=== PATIENT | female | born 1990 | race Hispanic/Latino ===

== ENCOUNTER 2017-06-28 22:25 | Emergency (ER) | payer SELFPAY, OTHER ==
[2017-06-28 22:46] LABS: Bilirubin Negative (Negative); Blood, Urine Negative (Negative); Clarity CLOUDY (Clear); Glucose, Urine (Dipstick) Negative (Negative); Leukocyte Small (Negative); Nitrite Negative (Negative); Protein, Urine (Dipstick) Negative (Neg-Trace); Specific Gravity, Urine 1.022 (1.002-1.036); pH, Urine 6.5 (5.0-9.0)
[2017-06-28 22:48] LABS: Bacteria/HPF 1+ HPF (None Seen); Hyaline Casts/LPF 0-3 HYALINE CAST LPF (0-3 Hyaline); Pathc Cast-AUWi Flag 0.13 (0-2.49); WBC/HPF 0-3 HPF (0-3)
[2017-06-28 22:59] LABS: #Basophils 0.1 thou/uL (0.0-0.2); #Eosinphils 0.1 thou/uL (0.0-0.7); #Lymphocytes 3.1 thou/uL (1.20-3.40); #Monocytes 0.7 thou/uL (0.11-0.59); #Neutrophils 4.7 thou/uL (1.40-6.50); %Basophils 0.9 % (0.0-1.0); %Eosinophils 1.1 % (0.0-10.0); %Monocytes 7.6 % (0.0-10.0); %Neutrophils 54.4 % (42.0-75.0); Hemoglobin 13.9 g/dL (12.0-16.0); Mean Corpuscular HGB CONC 35.5 g/dL (32.0-36.0); Mean Corpuscular Volume 90.4 fl (81.0-99.0); Platelet Count 446 thou/uL (130-400); RBC Distribution Width 12.2 % (11.5-14.5); Red Blood Cell (RBC) Count 4.33 mill/uL (4.20-5.40); White Blood Cell (WBC) Count 8.7 thou/uL (4.8-10.8)
--- NOTE | 2017-06-29 13:45 | ULT ---
PRELIMINARY REPORT/[facility]/EMERGENCY AFTER HOURS PROCEDURE: EXAM: US , Transvaginal US Duplex Arterial/Venous of the Pelvis, Complete CLINICAL HISTORY: 27 years old, female; Pain; Other: Pelvic pain, +preg; Gestational age or lmp: 5w6d; TECHNIQUE: Real-time transvaginal obstetrical ultrasound of the maternal pelvis and a first trimester with image documentation. Transvaginal imaging was used for better evaluation of the fetus and adnexa . Real-time duplex ultrasound scan of the arterial and venous flow of the pelvis with color Doppler jonathan w and spectral waveform analysis was also performed for evaluation of pelvic and ovarian blood flow a nd torsion. COMPARISON: No relevant prior studies available. FINDINGS: Gestation: Single, living intrauterine gestation. heart rate 103-114 beats per minute. CRL 0.34 cm-6w0d. Yolk sac visualized. Small subchorionic hemorrhage measuring up to 1 cm. Placenta/amniotic fluid: Cannot be adequately evaluated due to the early gestational age. Uterus/cervix: Unremarkable. No myometrial mass. Ovaries: Probable right ovarian corpus luteal cyst. Otherwise unremarkable. Normal blood flow. No ev idence of torsion. Free fluid: Mild cul-de-sac free fluid. IMPRESSION: Single viable intrauterine . Small subchorionic hemorrhage. Findings described above. Thank you for allowing us to participate in the care of your patient. Dictated and Authenticated by: Nestor Gallegos MD 06/29/2017 12:51 AM Central Time ([place] & [place]) FINAL REPORT EMERGENCY AFTER HOUS PELVIC ULTRASOUND INCLUDING TRANSVAGINAL AND VASCULAR DUPLEX WITH COLOR AND SPEC TRAL DOPPLER IMAGING: Date: 06/29/17 Time: 0015 hours FINDINGS: Early viable intrauterine with crown-rump length of 0.3 cm, equivalent to 6 weeks/0 days. G estational sac is 0.92 cm, equivalent to 5 weeks/5 days, with a gestational age average of 5 weeks/6 days. EDC of 02/22/18. Left ovary is 1.8 x 1.7 x 2.9 cm. Right ovary is 2.0 x 2.0 x 3.9 cm with a 1.3 x 1.8 cm follicle cyst . Uterus measures 7.6 x 4.0 x 5.0 cm. Small subchorionic hemorrhage. Vascular duplex with color and spectral Doppler imaging to both ovaries demonstrates vascular flow to both ovaries. No evidence of ovarian torsion. Minimal free fluid. IMPRESSION: Early viable intrauterine with subchorionic hemorrhage. Continue short-term follow-up serum HCGs. Report in agreement with preliminary report given on-call by Jt. POS: FELIX
== END 2017-06-29 01:55 | disposition home or self-care (01) ==
LOC: ERS 22:25
DX: O20.0 Threatened abortion (principal); O23.41 Unspecified infection of urinary tract in pregnancy, first trimester
CPT/HCPCS: 36415; 76856; 81003; 81015; 84702; 85025; 86850; 86900; 86901

== ENCOUNTER 2017-10-02 23:17 | Emergency (ER) | payer OTHER, SELFPAY ==
[2017-10-03] MEDS ORDERED: Ketorolac Tromethamine 30 MG/ML VIAL ONE (00:33)
[2017-10-03] MEDS ORDERED: Acetaminophen 500 MG TAB ONE (01:10)
[2017-10-03 01:25] LABS: Bilirubin Negative (Negative); Blood, Urine Negative (Negative); Clarity CLOUDY (Clear); Glucose, Urine (Dipstick) Negative (Negative); Leukocyte Negative (Negative); Nitrite Negative (Negative); Protein, Urine (Dipstick) Negative (Neg-Trace); Specific Gravity, Urine 1.015 (1.002-1.036)
[2017-10-09 11:53] LABS: Ref Lab Test Ordered SENS; Reference Lab Name LABCORP
== END 2017-10-03 01:53 | disposition home or self-care (01) ==
LOC: ERS 23:17
DX: B34.9 Viral infection, unspecified (principal)
CPT/HCPCS: 81003; 87077; 87081; 87086; 87430; 87804; 99283; J1885